=== PATIENT | male | born 1940 | race Caucasian/White ===

== ENCOUNTER 2016-07-11 01:59 | Observation (INO) | END 2016-07-11 16:04 | DX: R07.9 Chest pain, unspecified (principal); I69.354 Hemiplegia and hemiparesis following cerebral infarction affecting left non-dominant side; Z85.46 Personal history of malignant neoplasm of prostate; I10 Essential (primary) hypertension; K21.9 Gastro-esophageal reflux disease without esophagitis | CPT/HCPCS: 36415; 71010; 80048; 82550; 82553; 83735; 84484; 85025; 85610; 85730; 93005; 93306; 99285; G0378; J7040 ==

== ENCOUNTER 2016-07-20 16:18 | Inpatient (IN) | payer BC ==
[~2016-07-20] VITALS: Ht 167.6 cm; Wt 66.8 kg
[~2016-07-20 16:18] MED LIST: ACET-2047 GTB; AMIN887L6 GTB; ASCO500S2 PO; DICL100G37 TOP; DOCU-144 GTB; FLUC200T52 G-TUBE; HYDR-3671 GTB; KEP100S GTB; LACT1CAP56 GTB; LEVA1.25 INHALATION; MAGN400O4 PO; OMEP40CA6 GTB
[2016-07-20 16:43] VITALS: TEMP 99.4
[2016-07-20 17:05] LABS: ADD SCAN DIFF NO
[2016-07-20 17:14] LABS: BASOPHILS % 0.2 % (0.0-2.0); EOSINOPHILS # 0.2 10^3/ul (0.0-0.5); EOSINOPHILS % 2.7 % (0.0-7.0); HEMATOCRIT 36.6 % (42.0-52.0); HEMOGLOBIN 12.3 g/dl (14.0-18.0); LYMPHOCYTES # 0.9 10^3/ul (0.8-2.9); LYMPHOCYTES % 16.7 % (15.0-51.0); MEAN CORPUSCULAR HEMOGLOBIN 31.7 pg (29.0-33.0); MEAN CORPUSCULAR HGB CONC 33.6 g/dl (32.0-37.0); MEAN CORPUSCULAR VOLUME 94.3 fl (82.0-101.0); MEAN PLATELET VOLUME 11.3 fl (7.4-10.4); MONOCYTE # 0.4 10^3/ul (0.3-0.9); MONOCYTES % 7.6 % (0.0-11.0); NEUTROPHILS % 72.6 % (39.0-77.0); PLATELET COUNT 139 10^3/UL (140-415); RED BLOOD COUNT 3.88 10^6/ul (4.70-6.10); RED CELL DISTRIBUTION WIDTH 11.8 % (11.5-14.5); WHITE BLOOD COUNT 5.5 10^3/ul (4.8-10.8)
[2016-07-20] MEDS ORDERED: METR500T PO (17:15)
[2016-07-20] MEDS ORDERED: LEVO500T72 PO (17:16)
[2016-07-20] MEDS ORDERED: SENN-53 PO (17:17)
[2016-07-20 17:18] LABS: CHLORIDE 106 mmol/L (97-110); INR 1.01; PROTIME 13.3 Sec (12.2-14.2)
--- NOTE | 2016-07-20 17:18 | RADRPT ---
PROCEDURE: XR Chest. CLINICAL INDICATION: Shortness of breath. Altered mental status. TECHNIQUE: Single frontal view. COMPARISON: 07/11/2016. FINDINGS: The lungs are clear. The heart size is normal. There is no pleural effusion. There is no pneumothorax. IMPRESSION: 1. Normal chest radiograph. 2. No change from 07/11/2016. RPTAT: QQ .Alejandro Deleon MD, MD Date Time Electronically viewed and signed by .Alejandro Deleon MD, MD on 07/20/2016 17:18 .R/
[2016-07-20 17:19] LABS: PARTIAL THROMBOPLASTIN TIME 33.3 Sec (25.0-35.0); POTASSIUM 4.1 mmol/L (3.5-5.1); SODIUM 144 mmol/L (135-144)
[2016-07-20 17:21] LABS: CREATININE 0.86 mg/dl (0.61-1.24)
[2016-07-20 17:22] LABS: ALANINE AMINOTRANSFERASE 39 IU/L (13-69); ALBUMIN/GLOBULIN RATIO 0.96; ALKALINE PHOSPHATASE 80 IU/L (42-121); ANION GAP 13 (8-16); ASPARTATE AMINO TRANSFERASE 24 IU/L (15-46); BILIRUBIN,INDIRECT 0.5 mg/dl (0-1.1); BILIRUBIN,TOTAL 0.5 mg/dl (0.2-1.3); BLOOD UREA NITROGEN 25 mg/dl (7-20); CALCIUM 9.5 mg/dl (8.4-10.2); CARBON DIOXIDE 29 mmol/L (21-31); GLUCOSE 105 mg/dl (70-220); TOTAL PROTEIN 6.1 g/dl (6.1-8.1)
--- NOTE | 2016-07-20 17:23 | RADRPT ---
PROCEDURE: CT brain without contrast CLINICAL INDICATION: Altered mental status, history of stroke TECHNIQUE: CT of the brain without contrast performed on a multidetector CT scanner, with multiplan ar reformats. One or more of the following dose reduction techniques were used: Automated exposure control, adjustment in mA and / or kV according to patient size, use of iterative reconstructive leanne hnique. CTDIvol = 14 mGy; DLP = 634 mGy-cm. COMPARISON: None available FINDINGS: There are multifocal hyperdense intraparenchymal hemorrhages in the right frontal and parietal lobes with dominant hematoma in the frontoparietal junction measuring approximately 2.8 x 4 x 5 cm. Ther e is moderate to severe surrounding edema with areas of loss of austin-white differentiation. There i s mass effect with partial effacement of the lateral and third ventricles, leftward subfalcine herni ation with shift of the midline structures measuring up to approximately 1.5 cm. There is a small a mount of hemorrhage seen in the left lateral ventricle at the atrium. No hydrocephalus is identifie d. No extra-axial fluid collection is seen. Atherosclerotic calcifications of the intracranial internal carotid arteries are noted. Osseous structures are unremarkable. Left mastoid air cells are partially opacified. IMPRESSION: 1. Multifocal right frontoparietal intraparenchymal hemorrhages, with dominant hematoma measuring a pproximately 2.8 x 4 x 5 cm, with moderate to severe surrounding edema along with areas of loss of g ray-white differentiation possibly reflecting an underlying recent ischemic infarct. 2. Leftward subfalcine herniation, approximately 1.5 cm leftward midline shift. 3. Small amount of hemorrhage in the left lateral ventricle. Critical results called to Dr. Garcia at 05:19 p.m., 07/20/2016. RPTAT: EE .Dann Mix MD, Date Time Electronically viewed and signed by .Dann Mix MD, MD on 07/20/2016 17:23 .O/
--- NOTE | 2016-07-20 17:25 | ERA ---
ER Documentation Chief Complaint Date/Time DATE: 07/20/16 TIME: 17:19 Chief Complaint ALOC HPI 76-year-old male, history of hypertension, thrombocytopenia and hemorrhagic CVA with left hemiparesis brought to the ED from [facility] for evaluation of altered mental status. Patient had a hemorrhagic CVA several months ago with prolonged hospital admission at [facility] was discharged to group home facility and then had a rebleed last week. He was also admitted 07/11/2016 to [facility] for chest pain and ACS was ruled out. Today after rehab had a episode of unresponsiveness with altered mental status but now seems to be back to baseline. No headache or new focal weakness or numbness. Denies chest pain or palpitations. No shortness of breath or cough. No abdominal pain, nausea vomiting. No fevers or chills. ROS All systems reviewed and are negative except as per history of present illness. Medications Home Meds Active Scripts Omeprazole* (Omeprazole*) 40 Mg Capsule., 40 MG GTB BID, #30 CAP Prov:RUBY SCOTT F 07/11/16 Reported Medications Sennosides* (Senna Lax*) 8.6 Mg Tablet, 1 TAB PO Q12H Y for CONSTIPATION, TAB 07/20/16 Levofloxacin* (Levaquin*) 500 Mg Tablet, 500 MG PO DAILY, TAB STARTED TX ON 06-19-16 07/20/16 Metronidazole* (Flagyl*) 500 Mg Tablet, 500 MG PO TID, TAB STARTED ON 06-20-16 07/20/16 Levalbuterol Hcl* (Levalbuterol Hcl*) 1.25 Mg/0.5 Ml Vial.neb, 1.25 MG INHALATION BID, VIAL 07/11/16 Diclofenac Sodium* (Voltaren* Gel) 1% -100 Gm Gel, 4 GM TOP QID, #1 TUB 07/11/16 Acetaminophen* (Acetaminophen*) 650 Mg Tablet, 650 MG GTB Q4 Y for PAIN, #30 TAB 07/11/16 Lactobacillus Combo No.11 (Probiotic) 1 Each Cap.sprink, 1 CAP GTB DAILY, CAP 07/11/16 Levetiracetam* (Keppra* (Ped)) 100 Mg/Ml Liq, 750 MG GTB BID for 30 Days, BOTTLE 07/11/16 Discontinued Reported Medications Amino Acids/Protein Hydrolys (PRO-STAT AWC LIQUID) 887 Ml Liquid, 30 ML GTB BID 07/11/16 Magnesium Hydroxide* (Milk Of Magnesia*) 400 Mg/5 Ml Oral.susp, 30 ML PO every second day Y for CONSTIPATION, ML 07/11/16 Hydralazine Hcl* (Hydralazine Hcl*) 25 Mg Tab, 25 MG GTB Q6, #120 TAB 07/11/16 Docusate Sodium* (Colace*) 100 Mg Capsule, 100 MG GTB DAILY, #30 CAP 07/11/16 Fluconazole* (Fluconazole*) 200 Mg Tablet, 200 MG G-TUBE DAILY for 1 Day, TAB 07/11/16 Ascorbic Acid* (Ascorbic Acid*) 500 Mg/5 Ml Syrup, 500 MG PO DAILY, #150 ML 07/11/16 Allergies Allergies: Coded Allergies: No Known Allergy (Unverified , 07/11/16) PMhx/Soc Reviewed in chart. As per HPI. History of Surgery: Yes Anesthesia Reaction: Yes (G-tube) Hx Neurological Disorder: Yes Hx Respiratory Disorders: No Hx Cardiac Disorders: Yes (Hypertension) Hx Psychiatric Problems: No Hx Miscellaneous Medical Probl: Yes (Multiple decubiti) Hx Alcohol Use: No Hx Substance Use: No Hx Tobacco Use: No Smoking Status: Never smoker FmHx Reviewed in chart. Physical Exam Vitals Vital Signs Date Time Temp Pulse Resp B/P Pulse Ox O2 Delivery O2 Flow Rate FiO2 07/20/16 16:44 99.4 69 16 102/73 98 07/20/16 16:43 99.4 69 16 102/73 98 Room Air Physical Exam Const: Alert, chronically ill-appearing Head: Atraumatic Eyes: Right pupil fixed and dilated. Normal conjunctiva. ENT: Normal External Ears, Nose and Mouth. Neck: Nontender. No JVD. Resp: Breath sounds are equal and clear to auscultation bilaterally Cardio: Regular rate and rhythm, no murmurs Abd: Soft, non tender, non distended. Normal bowel sounds. G-tube site clean without erythema, induration or drainage Skin: No petechiae or rashes Back: No midline or flank tenderness Ext: No cyanosis, or edema Neur: Awake and alert. Dense left hemiparesis. Psych: Normal Mood and Affect Result Diagram: 07/20/16 1650 07/20/16 1650 Results 24 hrs Laboratory Tests Test 07/20/16 16:50 07/20/16 17:30 07/20/16 19:05 Activated Partial Thromboplast Time 33.3Sec Alanine Aminotransferase (ALT/SGPT) 39IU/L Albumin 3.0g/dl Albumin/Globulin Ratio 0.96 Alkaline Phosphatase 80IU/L Anion Gap 13 Aspartate Amino Transf (AST/SGOT) 24IU/L Basophils # 0.010^3/ul Basophils % 0.2% Blood Urea Nitrogen 25mg/dl Calcium Level 9.5mg/dl Carbon Dioxide Level 29mmol/L Chloride Level 106mmol/L Creatinine 0.86mg/dl Direct Bilirubin 0.00mg/dl Eosinophils # 0.210^3/ul Eosinophils % 2.7% Globulin 3.10g/dl Glucose Level 105mg/dl Hematocrit 36.6% Hemoglobin 12.3g/dl INR International Normalized Ratio 1.01 Indirect Bilirubin 0.5mg/dl Lymphocytes # 0.910^3/ul Lymphocytes % 16.7% Mean Corpuscular Hemoglobin 31.7pg Mean Corpuscular Hemoglobin Concent 33.6g/dl Mean Corpuscular Volume 94.3fl Mean Platelet Volume 11.3fl Monocytes # 0.410^3/ul Monocytes % 7.6% Neutrophils # 4.010^3/ul Neutrophils % 72.6% Nucleated Red Blood Cells # 0.010^3/ul Nucleated Red Blood Cells % 0.0/100WBC Platelet Count 69305^3/UL Potassium Level 4.1mmol/L Prothrombin Time 13.3Sec Prothrombin Time Ratio 1.0 Red Blood Count 3.8810^6/ul Red Cell Distribution Width 11.8% Sodium Level 144mmol/L Total Bilirubin 0.5mg/dl Total Protein 6.1g/dl Troponin I < 0.012ng/ml White Blood Count 5.510^3/ul Urine Amorphous Urates MODERATE Urine Bacteria FEW Urine Bilirubin NEGATIVE Urine Clarity SLIGHTLY CLOUDY Urine Color LT. YELLOW Urine Glucose NEGATIVE% Urine Hemoglobin TRACE Urine Ketones NEGATIVE Urine Leukocyte Esterase NEGATIVE Urine Microscopic RBC 0-2/HPF Urine Microscopic WBC 0-2/HPF Urine Nitrite NEGATIVE Urine Specific [place] 1.010 Urine Total Protein NEGATIVE Urine Urobilinogen 0.2 E.U./dL Urine pH 7.0 Platelet Func Collagen/Epinephrine 84Secs. Platelet Function Collagen/ADP Secs. Current Medications Medications (Trade) Dose Ordered Sig/Jay Route PRN Reason Start Time Stop Time Status Last Admin Dose Admin Mannitol (Mannitol 25%) 25 gm ONCE ONCE IV* 07/20/16 18:30 07/20/16 18:31 DC RHYTHM STRIP INTERPRETATION: Time: 17: 00. Sinus rhythm. Ventricular rate 70. No ectopy. Indication: Altered mental status. EKG: Time: 17:16. Sinus rhythm. Ventricular rate 65, normal UT and QRS intervals. No acute ST segment elevation or depression. No axis deviation or ectopy. EP Impression: Normal EKG IMAGING: PROCEDURE: CT brain without contrast CLINICAL INDICATION: Altered mental status, history of stroke TECHNIQUE: CT of the brain without contrast performed on a multidetector CT scanner, with multiplanar reformats. One or more of the following dose reduction techniques were used: Automated exposure control, adjustment in mA and / or kV according to patient size, use of iterative reconstructive technique. CTDIvol = 14 mGy; DLP = 634 mGy-cm. COMPARISON: None available FINDINGS: There are multifocal hyperdense intraparenchymal hemorrhages in the right frontal and parietal lobes with dominant hematoma in the frontoparietal junction measuring approximately 2.8 x 4 x 5 cm. There is moderate to severe surrounding edema with areas of loss of austin-white differentiation. There is mass effect with partial effacement of the lateral and third ventricles, leftward subfalcine herniation with shift of the midline structures measuring up to approximately 1.5 cm. There is a small amount of hemorrhage seen in the left lateral ventricle at the atrium. No hydrocephalus is identified. No extra-axial fluid collection is seen. Atherosclerotic calcifications of the intracranial internal carotid arteries are noted. Osseous structures are unremarkable. Left mastoid air cells are partially opacified. IMPRESSION: 1. Multifocal right frontoparietal intraparenchymal hemorrhages, with dominant hematoma measuring approximately 2.8 x 4 x 5 cm, with moderate to severe surrounding edema along with areas of loss of austin-white differentiation possibly reflecting an underlying recent ischemic infarct. 2. Leftward subfalcine herniation, approximately 1.5 cm leftward midline shift. 3. Small amount of hemorrhage in the left lateral ventricle. Critical results called to Dr. Wu at 05:19 p.m., 07/20/2016. RPTAT: EE .Dann Mix MD, Date Time Electronically viewed and signed by .Dann Mix MD, MD on 07/20/2016 17:23 .O/ PROCEDURE: XR Chest. CLINICAL INDICATION: Shortness of breath. Altered mental status. TECHNIQUE: Single frontal view. COMPARISON: 07/11/2016. FINDINGS: The lungs are clear. The heart size is normal. There is no pleural effusion. There is no pneumothorax. IMPRESSION: 1. Normal chest radiograph. 2. No change from 07/11/2016. RPTAT: QQ .Alejandro Deleon MD, MD Date Time Electronically viewed and signed by .Alejandro Deleon MD, MD on 07/20/2016 17:18 .R/ Procedures/MDM DOCUMENTS REVIEWED: ED nurse, prior ED, group home facility records, hospital records from [facility]. REEXAMINATION/REEVALUATION: Time: 18:10. Doing well. At baseline. MEDICAL DECISION MAKIN-year-old male, history of hypertension, thrombocytopenia and hemorrhagic CVA with left hemiparesis brought to the ED from [place] for evaluation of altered mental status. He is currently back to baseline. CT reveals mild worsening shift of approximately 1 mm. Neurosurgery consult obtained and there is no indication for operative therapy. Patient be admitted to the intensive care unit for further evaluation and management. Counseled patient and family regarding diagnosis, diagnostic results and plan for admission. CALLS/CONSULTS: Time 18:20, Dr. Munguia, Recommends Medical Management. CALLS/CONSULTS: Time 18:30, Dr. Nyasia Hernández. PATIENT CARE TRANSITIONED: Time: 19:30, Dr. Murrell. DISPOSITION: ICU Departure Diagnosis: Primary Impression: Intraparenchymal hemorrhage of brain Additional Impressions: Hypertension Qualified Code: I10 - Essential hypertension Thrombocytopenia Condition: Critical CHIQUITA WU MD Jul 20, 2016 17:25
[2016-07-20 17:39] LABS: ADD UMIC YES; URINE BILIRUBIN (Dip) NEGATIVE (NEGATIVE); URINE BLOOD (Dip) TRACE (NEGATIVE); URINE COLOR LT. YELLOW (YELLOW); URINE GLUCOSE (Dip) NEGATIVE (NEGATIVE); URINE KETONES (Dip) NEGATIVE (NEGATIVE); URINE LEUKOCYTE ESTERASE (Dip) NEGATIVE (NEGATIVE); URINE NITRITE (Dip) NEGATIVE (NEGATIVE); URINE TOTAL PROTEIN (Dip) NEGATIVE (NEGATIVE); URINE UROBILINOGEN (Dip) 0.2 E.U./dL (0.1-1.0)
[2016-07-20 17:41] LABS: TROPONIN-I < 0.012 ng/ml (0.00-0.12)
[2016-07-20 18:04] LABS: BACTERIA,URINE FEW; URINE RBCS 0-2 /HPF (0)
[2016-07-20] MEDS ORDERED: MANNITOL 25% 50 ML INJ IV* ONE (18:30)
[2016-07-20] MEDS ORDERED: MAGNESIUM HYDROXIDE 30ML CUP PO PRN (21:30)
[2016-07-20] MEDS ORDERED: NACL 0.9% 3 ML SYG IV SCH (21:30)
[2016-07-20] MEDS ORDERED: ONDANSETRON 4 MG INJ IV PRN (21:30)
[2016-07-20] MEDS ORDERED: DOCUSATE SODIUM 100 MG CAP PO PRN (21:30)
[2016-07-20] MEDS ORDERED: HYDROCODONE/APAP (5/325) TAB PO PRN ×2 (21:30)
[2016-07-20] MEDS ORDERED: ACETAMINOPHEN 325 MG TAB PO PRN (21:30)
[2016-07-20] MEDS ORDERED: DOCUSATE SODIUM 10 MG/ML (10ML CUP) GTB PRN (22:00)
[2016-07-20] MEDS ORDERED: MAGNESIUM HYDROXIDE 30ML CUP PEG PRN (22:00)
[2016-07-20 22:10] VITALS: Ht 167.6 cm; Wt 66.8 kg
[2016-07-20 22:30] VITALS: BP 121/71; PULSE 64; RESP 19
[2016-07-20] MEDS ORDERED: PANTOPRAZOLE (EC) 40 MG TAB PO ONE (22:30)
[2016-07-20] MEDS ORDERED: ACETAMINOPHEN 650MG/20.3ML CUP PEG PRN (22:30)
[2016-07-20] MEDS ORDERED: PANTOPRAZOLE 40 MG INJ IV ONE (22:30)
--- NOTE | 2016-07-20 22:31 | CONS ---
DATE OF ADMISSION: 07/20/2016 DATE OF CONSULTATION: 07/20/2016 REQUESTING PHYSICIAN: Dr. Chris Garcia INDICATION FOR CONSULTATION: Intracranial hemorrhage. HISTORY OF PRESENT ILLNESS: The patient is a 76-year-old right-handed male with a history of multiple intracranial hemorrhages and a history of hypertension and mild thrombocytopenia who was brought in from a intermediate facility after he reportedly had some alteration in mental status. The patient was released from [facility] after being admitted on the for recurrent right intraparenchymal hemorrhage. Six weeks prior, the patient had had intracranial hemorrhage in the same area. History is obtained from the patient's as well as from the patient to a limited degree. According to the patient's , she had found him less responsive after rehab today and was concerned, so [facility] was [facility]. The patient, however, upon coming to the ER reportedly is back to his neurological baseline since his strokes. The patient denies any headaches, nausea, vomiting or new weakness or sensory changes. He denies any chest pain or abdominal pain or palpitations. He denies any fevers or chills, abdominal pain or shortness of breath. A CT scan of the brain was performed which shows a large hemorrhagic stroke with surrounding edema. There is some leftward subfalcine herniation and midline shift of 3 mm. I reviewed the radiologist's result and discussed this study with the radiologist, who had compared this study to the prior study performed at [facility]. He felt there might be a slight, perhaps 1 mm increased midline shift but otherwise stable study. The radiologist who interpreted the study, Dr. Mix's impression was that: 1. There are multifocal right frontoparietal intraparenchymal hemorrhages with dominant hematoma measuring approximately 2.8 x 4 x 5 cm with moderate to severe surrounding edema along with loss of austin-white differentiation possibly reflecting an underlying recent ischemic infarct. 2. There is left subfalcine herniation, approximately 1.5 cm leftward midline shift and a small amount of hemorrhage in left lateral ventricle. As well, I see no evidence of hydrocephalus. REVIEW OF SYSTEMS: A 12-point review of systems was performed. Pertinent positives and negatives listed in the history of present illness and below. CONSTITUTIONAL: Denies any history of fevers or chills. HEMATOLOGIC: Denies any history of easy bruising or bleeding. MEDICATIONS: Reviewed in the chart include: 1. Omeprazole. 2. Sennosides. 3. Levofloxacin. 4. Metronidazole. 5. Voltaren cream. 6. Levalbuterol. 7. Acetaminophen. 8. Lactobacillus. 9. Keppra. ALLERGIES: THE PATIENT HAS NO KNOWN DRUG ALLERGIES. PAST MEDICAL HISTORY: The patient's past medical is history significant for hypertension as well as multiple strokes. According to the patient's , the patient had visual problems [facility], where he was found to have an occipital hemorrhage. The patient apparently had a full workup to evaluate for arteriovenous malformations and other vascular malformations including a formal angiogram as well as MRI. The patient was told that there was no evidence of any type of lesion to cause this bleed. It should be noted that subsequently the patient has had 2 other intraparenchymal hemorrhages in the past 2 years. PAST SURGICAL HISTORY: Includes a G-tube placement. SOCIAL HISTORY: The patient is nonsmoker, nondrinker, is . FAMILY HISTORY: Reviewed. No history of inherited bleeding disorders. PHYSICAL EXAMINATION: VITAL SIGNS: Temperature 99.4, pulse 69, respirations 16, blood pressure 102/73 , saturating 98% on room air. GENERAL: The patient is a thin, elderly man lying in the hospital bed in no acute distress. HEAD AND NECK: The patient atraumatic. NEUROLOGIC: The patient is awake, alert. He is oriented to self and place. He has soft and hesitant speech. The patient does follow most commands readily and appropriately. He appears to have grossly normal attention and concentration for examination, though he clearly has some slight cognitive slowing. Cranial nerves II through XII are serially tested. II: The patient has some diminished visual acuity bilaterally secondary to myopia but also has a history of cataract and damage to the right eye. III, IV and XI: Extraocular muscles intact. Left pupil equal, round, reactive to light. Right pupil irregular. V: Normal facial sensation bilaterally. VII: Face has slight left facial droop compared to right. VIII: Grossly normal auditory acuity to finger rub and normal voice. IX: Symmetrical palate raise. XI: 5/ 5 sternocleidomastoid shoulder shrug. XII: No tongue deviation when protruded. His motor exam is 5/5 in his right upper and lower extremities. His left upper and lower extremities are flaccid and hemiparetic, 0/5. Sensation is intact to light touch. Deep tendon reflexes were 1+ throughout, although the patient did have a left Babinski and left Nikki sign. He had no clonus. Gait not assessed secondary to condition. CARDIAC: Regular rate, rhythm. CHEST: Clear to auscultation. ABDOMEN: Nontender, nondistended, soft. He has G-tube site. EXTREMITIES: No clubbing, cyanosis or edema. LABORATORY DATA: The patient's white count 5.5, hemoglobin 12.3, platelets 139. Sodium 144, BUN and creatinine 25 and 0.86 with glucose of 105. REVIEW OF RADIOGRAPHIC RESULTS: I reviewed the patient's CT scan as discussed in the history of present illness as well as the radiologist's result. ASSESSMENT AND PLAN: A 76-year-old male status post right intraparenchymal hemorrhage with localized edema. I discussed the patient's signs, symptoms, clinical exam and radiographic findings in detail with the patient and his . I had an extended conversation with the patient's , well over 30 minutes as she had multiple questions regarding the patient's care. I explained that I had been consulted for evaluation of surgical intervention. I discussed the nature of the patient's hemorrhage. I also discussed the likely etiologies. I explained that the patient most likely had amyloid angiopathy given the multiple recurrent hemorrhages and the lobar location as well as the patient's reported previously negative angiogram. The patient has already been hospitalized twice at [facility] and evaluated for workup, and I do not believe further workup with, for example, CT angiogram is indicated. As well, per the patient's , the patient had a negative angiogram previously. 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 The patient does have some thrombocytopenia, but the platelet count appears to be close to if not greater than 100,000 and probably unlikely is source for the initial bleed. In either case, I explained that the patient currently neurologically appears fine, and given the location and size of the lesion as well as the patient's age, I would not recommend any type of surgical intervention should the patient neurologically deteriorate. I discussed the [facility] trial as well as the likely outcome for removal of intraparenchymal hemorrhages, and I explained that this would likely leave patient with significant neurologic deficits and not generally leave him with a quality of life that most people would find acceptable. The patient already has a significant neurologic deficit which is only recent. Also, patient likely has significant risk for recurrent bleeds in the future. I also discussed the decompressive hemicraniectomy and explained, again, that I would not recommend such a procedure on a patient of this age would should he deteriorate. Currently I would not recommend an operation as the patient appears to be neurologically stable, and should he deteriorate, given the likely outcome, I do not believe this would significantly leave the patient with an acceptable quality of life in the majority of cases. I explicitly stated that I would not recommend or perform such a procedure, and therefore if the patient or his felt that they would want consideration for such a procedure, they were welcome to be transferred to [place] or to find a neurosurgeon that might perform such a procedure should such a deterioration take place. The patient's , however, stated that she was not inclined to return to [place], although the patient had recently been admitted twice to the hospital. I explained that the patient appears neurologically stable, and it may be reasonable just to follow up CT scans and if the edema appears to be stable, then there likely would not be any medical intervention necessary. The patient had been given mannitol, and I discussed the potential benefit of this for the patient's swelling. I discussed the natural history of this swelling and of the edema and explained that it may generally maximize around 5 days. However, there could be other underlying reasons for the persistence of this edema. The patient is to be admitted to the hospital medical service, and I recommended conservative and medical treatment. I explicitly explained I deferred any such medical treatment to the medical service as the patient does not appear to have an acute bleed, and again as discussed, the recommended clinical treatment, I would not recommend providing any type of neurosurgical intervention given the patient's specific clinical scenario. The patient and his expressed understanding and agreement with the recommendations. Thank you for allowing me to participate in the care of this patient. EVALUATION AND MANAGEMENT NOTE: Greater than 60 minutes in hospital evaluation and medical management including counseling and coordination of care. Dictated By: EVETTE ANGULO MD, LG/RUDDY Conf#: [id number] DID#: [id number] SHEILA
[2016-07-20 22:43] VITALS: PULSE 65
[2016-07-20 23:00] VITALS: BP 130/78; PULSE 63; RESP 19
--- NOTE | 2016-07-20 23:34 | HP ---
DATE OF ADMISSION: 07/20/2016 CHIEF COMPLAINT: Altered mental status. HISTORY OF PRESENT ILLNESS: The patient is a 76-year-old male with a recent stroke who was hospitalized at [facility] from 07/16/2016 through 07/19/2016. The patient was subsequently discharged to [facility] for rehabilitation and but re-presented back to [facility] at approximately 2:00 p.m. today. Apparently, there was about a 20-minute episode where the patient was unresponsive, according to his girlfriend. EMS was summoned and, once the paramedics arrived, the patient was aroused and awakened by paramedics and went back to baseline level of neurological status. As the patient's girlfriend felt that this was a complete change from his mental status, although he did return back to his baseline state , she requested evaluation at [facility] for further evaluation. The patient's history dates back to 07/16/2016 where he was hospitalized for a second time at [facility]. 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 He had a second bleed in the same area on 07/16/2016. During his 4-day hospitalization at [place], he was monitored with serial CT scans, but no esurgical intervention was needed per Dr. Schuster (neurosurgeon) at [facility]. He was noted to have moderate to severe surrounding edema and mass effect with partial effacement of the lateral and third ventricles with a leftward shift of approximately 1.5 cm. This appears to be unchanged from the CT scan from [facility] done 1 day prior. The patient had no change in his neurologic examination. At baseline after his stroke, he has dense left hemiparesis. He had no other symptoms whatsoever. Dr. Garcia evaluated the patient in the emergency department and Dr. Munguia was called for a bedside consultation. Dr. Munguia recommended mannitol every 6 hours; however, the patient's girlfriend refused this treatment. The patient was placed in the intensive care unit for frequent neuro checks and for ongoing monitoring. ALLERGIES: NO KNOWN DRUG ALLERGIES. MEDICATIONS: 1. Omeprazole 40 mg twice daily. 2. Senna laxative 8.6 grams twice daily. 3. Levaquin 500 mg once daily. 4. Flagyl 500 mg 3 times a day. 5. Xopenex 1.25 mg inhaled twice daily. 6. Voltaren gel 4 grams topical 4 times a day. 7. Tylenol 650 mg q.4h. via the G-tube p.r.n. temperature greater than 101. 8. Lactobacillus combo #11 probiotic 1 capsule via the G-tube once daily. 9. Keppra 1 gram via G-tube twice daily. PAST MEDICAL HISTORY: The patient has history of prostatectomy for prostate cancer. He also has GERD. SOCIAL HISTORY: The patient lives with his girlfriend in [place] for the last 23 years. He has adult children as well. He denies alcohol and tobacco use recently. REVIEW OF SYSTEMS: Essentially negative except as stated in history of present illness. PHYSICAL EXAMINATION: VITAL SIGNS: His temperature is 99.4, blood pressure 133/82, pulse rate of 65, respiratory rate of 18, oxygen saturation 98% on room air. HEENT: Normocephalic, atraumatic. Extraocular movements were intact. His pupils were equal, round, react to light and accommodations. Oropharynx was clear. He had a mild left facial droop. NECK: No JVD was noted. No thyromegaly was noted. CARDIOVASCULAR: He had a regular rate and rhythm without appreciable murmurs, rubs, or gallops. LUNGS: Clear to auscultation bilaterally without rales, rhonchi, or crackles. ABDOMEN: Soft, nontender, nondistended. Normoactive bowel sounds present in all 4 quadrants. He has a G-tube placed and the area, is clean, dry, and intact. EXTREMITIES: No clubbing, cyanosis, or edema was noted. LABORATORIES AND TESTS: White count 5.5, hemoglobin 12.3, hematocrit of 36.6, platelet count of 139,000. Sodium 144, potassium 4.1, chloride 106, bicarbonate 29, BUN 25, creatinine 0.86, glucose 105, calcium 9.5. Total bilirubin 0.5, indirect 0.5, AST 24, ALT 39, alkaline phosphatase 80. Troponin less than 0.012. Total protein 6.1. Albumin 3.0, globulin 3.1. PT 13.3, INR of 1.01, PTT 33.3. Urinalysis was essentially negative for infection. He had moderate amorphous ____ and trace hemoglobin and few bacteria. The patient had a CT scan of the brain in the ER, which revealed multifocal hyperdense intraparenchymal hemorrhages in the right frontal and parietal lobes with dominant hematoma in the frontoparietal junction measuring approximately 2.8 x 4 x 5 cm. There is moderate to severe surrounding edema with areas of loss of the austin-white differentiation. There is mass effect with partial effacement of the lateral and third ventricles, leftward subfalcine herniation with shift of midline structures pressure up to approximately 1.5 cm, small amount of hemorrhage seen in the left lateral ventricle at the atrium, no hydrocephalus was identified, and atherosclerotic calcification of the intracranial and internal carotid arteries were noted as well. IMPRESSION: 1. The patient is a pleasant 76-year-old gentleman who presented to [facility] after what was noted to be in acute mental status change. It appears that the patient was unresponsive, according to his girlfriend, and later when EMS arrived, he was awoken and was completely back to baseline. He did, however, come to [facility] ER and, although his neurological status appears to be at baseline, he was placed in the intensive care unit for frequent neurologic checks. He will receive serial CT scans to monitor his progress. The patient's girlfriend refused mannitol, as suggested by Dr. Munguia. He will be continued on his outpatient medications including Keppra for seizure prophylaxis, and depending on his clinical course, further treatments and evaluations to be made. 2. Gastroesophageal reflux disease, stable. Continue Protonix. 3. Bronchitis from his previous admission. We will continue Levaquin and Flagyl, as the patient may have had bronchitis and/or aspiration pneumonia. 4. Nutrition. The patient has a G-tube as he failed his swallow evaluation. He will be continued on Isosource HN with the goal rate of 60 mL. He will also get 200 mL of free water flushes every 6 hours. Dictated By: SARAH CLAUDIO/RUDDY Conf#: [id number] DID#: [id number] MTDD
[2016-07-20] MEDS: metroNIDAZOLE 500 MG TAB GTB SCH (23:45)
[2016-07-20] MEDS: LEVOFLOXACIN 500 MG TAB GTB SCH (23:45)
[2016-07-20] MEDS: LEVETIRACETAM 500 MG TAB PEG SCH (23:45)
[2016-07-21] VITALS (26 sets, daily range): BP systolic 79–137; BP diastolic 68–89; PULSE 64–113; RESP 12–32
[2016-07-21] MEDS ORDERED: HYDROCODONE/APAP (5/325) TAB PEG PRN (03:30)
[2016-07-21] MEDS ORDERED: ACETAMINOPHEN 325 MG TAB PEG PRN (03:30)
[2016-07-21 04:54] LABS: ADD SCAN DIFF NO
[2016-07-21 05:08] LABS: BASOPHILS % 0.4 % (0.0-2.0); EOSINOPHILS # 0.2 10^3/ul (0.0-0.5); EOSINOPHILS % 3.8 % (0.0-7.0); HEMATOCRIT 38.9 % (42.0-52.0); HEMOGLOBIN 12.9 g/dl (14.0-18.0); LYMPHOCYTES # 0.7 10^3/ul (0.8-2.9); LYMPHOCYTES % 14.8 % (15.0-51.0); MEAN CORPUSCULAR HEMOGLOBIN 31.6 pg (29.0-33.0); MEAN CORPUSCULAR HGB CONC 33.2 g/dl (32.0-37.0); MEAN CORPUSCULAR VOLUME 95.3 fl (82.0-101.0); MEAN PLATELET VOLUME 12.3 fl (7.4-10.4); MONOCYTE # 0.3 10^3/ul (0.3-0.9); MONOCYTES % 6.8 % (0.0-11.0); NEUTROPHIL # 3.7 10^3/ul (1.6-7.5); NEUTROPHILS % 73.8 % (39.0-77.0); PLATELET COUNT 132 10^3/UL (140-415); RED BLOOD COUNT 4.08 10^6/ul (4.70-6.10); RED CELL DISTRIBUTION WIDTH 11.9 % (11.5-14.5)
[2016-07-21 05:20] LABS: ALBUMIN 3.1 g/dl (3.3-4.9); POTASSIUM 4.2 mmol/L (3.5-5.1)
[2016-07-21 05:22] LABS: BILIRUBIN,INDIRECT 0.5 mg/dl (0-1.1); BILIRUBIN,TOTAL 0.5 mg/dl (0.2-1.3); CREATININE 0.87 mg/dl (0.61-1.24)
[2016-07-21 05:23] LABS: ALBUMIN/GLOBULIN RATIO 1.06; CALCIUM 9.6 mg/dl (8.4-10.2)
[2016-07-21] MEDS: metroNIDAZOLE 500 MG TAB GTB SCH ×3 (05:41→22:05)
[2016-07-21] MEDS: PANTOPRAZOLE 40 MG INJ IV SCH (05:41)
[2016-07-21] MEDS: LEVOFLOXACIN 500 MG TAB GTB SCH (05:41)
[2016-07-21] MEDS: LEVALBUTEROL (NEB) 1.25 MG/0.5 ML AMP HHN SCH ×2 (08:19→20:48)
[2016-07-21] MEDS: LEVETIRACETAM 500 MG TAB PEG SCH ×2 (09:05→20:37)
[2016-07-21] MEDS: LACTOBACILLUS CHEW TAB GTB SCH (09:05)
--- NOTE | 2016-07-21 11:03 | PN ---
Date/Time of Note Date/Time of Note DATE: 07/21/16 TIME: 10:37 Assessment/Plan VTE Prophylaxis VTE Prophylaxis Intervention: SCD's Lines/Catheters IV [facility]ter Type (from [facility]): Peripheral IV Urinary Cath still in place: Yes Reason Cath still needed: other (indicate) (ICU, monitor UOP ) Assessment/Plan Assessment/Plan 76-year-old gentleman: 1. 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 His neurological status appears to be back to baseline, Appreciate Neurosurgery evaluation and recommendations Conservative Management for now with follow up CT head Apparently , the patient's girlfriend refused mannitol, as suggested by Dr. Munguia. Continue outpatient medications including Keppra for seizure prophylaxis, and depending on his clinical course, further treatments and evaluations to be made. 2. Gastroesophageal reflux disease, stable. Continue Protonix. 3. Bronchitis from his previous admission. We will continue Levaquin and Flagyl, as the patient may have had bronchitis and/or aspiration pneumonia. 4. Nutrition. The patient has a G-tube as he failed his swallow evaluation. Continue, tube feeding, on Isosource HN with the goal rate of 60 mL and 200 mL of free water flushes every 6 hours. Prophylaxis: SCDs for dvt ppx and PPI for GI ppx Disposition: Further treatment and recommendations to be made based on the patient's progress. Neurosurgery following, will clarify frequency of serial CT head Subjective 24 Hr Interval Summary Free Text/Dictation Patient remains stable No new complaints with ongoing unchanged left hemiparesis BP stable and appreciate Neurosurgery evaluation and recommendations, need to clarify when need next CT head done Exam/Review of Systems Vital Signs Vitals Vital Signs Date Time Temp Pulse Resp B/P Pulse Ox O2 Delivery O2 Flow Rate FiO2 07/21/16 09:00 79 18 111/74 96 Room Air 07/21/16 08:19 21 07/21/16 07:40 98.4 Intake and Output 07/20/16 07/20/16 07/21/16 14:59 22:59 06:59 Intake Total 330 ml Output Total 890 ml Balance -560 ml Exam Constitutional: alert, frail, oriented, other (unchanged neurological deficits ) Respiratory: clear to auscultation, normal air movement Cardiovascular: nl pulses, regular rate and rhythm Gastrointestinal: non-tender, soft Musculoskeletal: nl extremities to inspection Extremities: normal pulses, other (no edema, clubbing or cyanosis ) 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, nl mental status (at [facility] ), other ( chronic dysarthria, left hemiparesis at [facility] ) Results Result Diagram: 07/21/16 0446 07/21/16 0446 Results 24 hrs Laboratory Tests Test 07/20/16 16:50 07/20/16 17:30 07/20/16 19:05 07/21/16 04:46 Activated Partial Thromboplast Time 33.3 Alanine Aminotransferase (ALT/SGPT) 39 35 Albumin 3.0 L 3.1 L Albumin/Globulin Ratio 0.96 1.06 Alkaline Phosphatase 80 75 Anion Gap 13 13 Aspartate Amino Transf (AST/SGOT) 24 25 Basophils # 0.0 0.0 Basophils % 0.2 0.4 Blood Urea Nitrogen 25 H 28 H Calcium Level 9.5 9.6 Carbon Dioxide Level 29 28 Chloride Level 106 109 Creatinine 0.86 0.87 Direct Bilirubin 0.00 0.00 Eosinophils # 0.2 0.2 Eosinophils % 2.7 3.8 Globulin 3.10 2.90 Glucose Level 105 123 Hematocrit 36.6 L 38.9 L Hemoglobin 12.3 L 12.9 L INR International Normalized Ratio 1.01 Indirect Bilirubin 0.5 0.5 Lymphocytes # 0.9 0.7 L Lymphocytes % 16.7 14.8 L Mean Corpuscular Hemoglobin 31.7 31.6 Mean Corpuscular Hemoglobin Concent 33.6 33.2 Mean Corpuscular Volume 94.3 95.3 Mean Platelet Volume 11.3 H 12.3 H Monocytes # 0.4 0.3 Monocytes % 7.6 6.8 Neutrophils # 4.0 3.7 Neutrophils % 72.6 73.8 Nucleated Red Blood Cells # 0.0 0.0 Nucleated Red Blood Cells % 0.0 0.0 Platelet Count 139 L 132 L Potassium Level 4.1 4.2 Prothrombin Time 13.3 Prothrombin Time Ratio 1.0 Red Blood Count 3.88 L 4.08 L Red Cell Distribution Width 11.8 11.9 Sodium Level 144 146 H Total Bilirubin 0.5 0.5 Total Protein 6.1 6.0 L Troponin I < 0.012 White Blood Count 5.5 5.0 Urine Amorphous Urates MODERATE Urine Bacteria FEW Urine Bilirubin NEGATIVE Urine Clarity SLIGHTLY CLOUDY Urine Color LT. YELLOW Urine Glucose NEGATIVE Urine Hemoglobin TRACE Urine Ketones NEGATIVE Urine Leukocyte Esterase NEGATIVE Urine Microscopic RBC 0-2 Urine Microscopic WBC 0-2 Urine Nitrite NEGATIVE Urine Specific [place] 1.010 Urine Total Protein NEGATIVE Urine Urobilinogen 0.2 E.U./dL Urine pH 7.0 Platelet Func Collagen/Epinephrine 84 Platelet Function Collagen/ADP Medications Medications Current Medications Ondansetron HCl (Zofran Inj) 4 mg Q6H PRN IV NAUSEA AND/OR VOMITING; Start 07/20 at 21:30 Acetaminophen/ Hydrocodone Bitart ([place] (5/325)) 2 tab Q6H PRN PO PAIN LEVEL 7 -10; Start 07/20/16 at 21:30 Acetaminophen/ Hydrocodone Bitart ([place] (5/325)) 1 tab Q6H PRN PEG PAIN LEVEL 4-6; Start 07/21/16 at 03:30 Magnesium Hydroxide (Milk Of Mag) 30 ml DAILY PRN PEG CONSTIPATION; Start at 22:00 Docusate Sodium (Colace Liquid Cup) 100 mg BID PRN GTB CONSTIPATION; Start 07/20 at 22:00 Acetaminophen (Tylenol Liquid) 650 mg Q6H PRN PEG PAIN LEVEL 1-3 OR FEVER; Start 07/20/16 at 22:30 Levetiracetam (Keppra) 1,000 mg BID PEG Last administered on 07/21/16 09:05; Admin Dose 1,000 MG; Start 07/20/16 at 22:30 Levofloxacin (Levaquin) 500 mg DAILY@06 GTB Last administered on 07/21/16 05:41 ; Admin Dose 500 MG; Start 07/20/16 at 22:30 Metronidazole (Flagyl) 500 mg Q8 GTB Last administered on 07/21/16 05:41; Admin Dose 500 MG; Start 07/20/16 at 22:30 Senna/Docusate Sodium (Senokot-S) 1 tab HS PO ; Start 07/21/16 at 21:00 Lactobacillus Acidoph/Bulgaricus (Floranex) 1 tab DAILY GTB Last administered on 07/21/16 09:05; Admin Dose 1 TAB; Start 07/21/16 at 09:00 Pantoprazole (Protonix Iv) 40 mg DAILY@06 IV Last administered on 07/21/16 05: 41; Admin Dose 40 MG; Start 07/21/16 at 06:00 RUBY SCOTT Jul 21, 2016 10:47
[2016-07-21] MEDS: CIPROFLOXACIN 0.3% 2.5 ML OPH RIGHT EYE SCH ×2 (17:22→20:38)
[2016-07-21] MEDS ORDERED: SENNA/DOCUSATE NA (8.6MG/50MG) TAB PO SCH (21:00)
--- NOTE | 2016-07-21 22:33 | PN ---
Date/Time of Note Date/Time of Note DATE: 07/21/16 TIME: 22:31 Assessment/Plan Lines/Catheters IV Catheter Type (from Nrs): Peripheral IV Kruse in Place (from Nrsg): Yes Subjective 24 Hr Interval Summary Patient doing well. Denies headache, nausea, vomiting. 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 follows comamnds readily and appropriately. Slurred but fluent speech.) Results Result Diagram: 07/21/16 0446 07/21/16 0446 EVETTE ANGULO MD Jul 21, 2016 22:33
[2016-07-22] VITALS (23 sets, daily range): BP systolic 95–134; BP diastolic 59–115; PULSE 69–95; RESP 12–28
[2016-07-22] MEDS: CIPROFLOXACIN 0.3% 2.5 ML OPH RIGHT EYE SCH ×4 (01:26→13:51)
[2016-07-22 04:53] LABS: ADD SCAN DIFF NO
[2016-07-22 05:07] LABS: BASOPHILS % 0.3 % (0.0-2.0); EOSINOPHILS # 0.2 10^3/ul (0.0-0.5); EOSINOPHILS % 2.6 % (0.0-7.0); HEMATOCRIT 38.9 % (42.0-52.0); HEMOGLOBIN 12.9 g/dl (14.0-18.0); LYMPHOCYTES # 0.9 10^3/ul (0.8-2.9); LYMPHOCYTES % 14.2 % (15.0-51.0); MEAN CORPUSCULAR HEMOGLOBIN 31.5 pg (29.0-33.0); MEAN CORPUSCULAR HGB CONC 33.2 g/dl (32.0-37.0); MEAN CORPUSCULAR VOLUME 94.9 fl (82.0-101.0); MEAN PLATELET VOLUME 12.4 fl (7.4-10.4); MONOCYTE # 0.4 10^3/ul (0.3-0.9); NEUTROPHIL # 4.7 10^3/ul (1.6-7.5); NEUTROPHILS % 75.3 % (39.0-77.0); PLATELET COUNT 136 10^3/UL (140-415); RED CELL DISTRIBUTION WIDTH 11.7 % (11.5-14.5); WHITE BLOOD COUNT 6.3 10^3/ul (4.8-10.8)
[2016-07-22] MEDS: metroNIDAZOLE 500 MG TAB GTB SCH ×2 (05:34→13:52)
[2016-07-22] MEDS: PANTOPRAZOLE 40 MG INJ IV SCH (05:34)
[2016-07-22] MEDS: LEVOFLOXACIN 500 MG TAB GTB SCH (05:34)
[2016-07-22 05:43] LABS: MAGNESIUM 2.2 mg/dl (1.7-2.5); PHOSPHORUS 4.2 mg/dl (2.5-4.9)
[2016-07-22 08:03] LABS: POTASSIUM 4.4 mmol/L (3.5-5.1)
[2016-07-22 08:05] LABS: CREATININE 0.96 mg/dl (0.61-1.24)
[2016-07-22 08:06] LABS: CALCIUM 9.6 mg/dl (8.4-10.2)
[2016-07-22] MEDS: LEVETIRACETAM 500 MG TAB PEG SCH (08:38)
[2016-07-22] MEDS: LACTOBACILLUS CHEW TAB GTB SCH (08:38)
--- NOTE | 2016-07-22 08:49 | RADRPT ---
PROCEDURE: CT Brain without contrast. CLINICAL INDICATION: 76-year-old male with history of intracranial hemorrhage. Follow-up examina tion. TECHNIQUE: A CT of the brain was performed on a high-resolution [employer] CT [facility] utilizing a low dose technique with axial imaging from the skull base through the vertex withou t IV contrast. Multiplanar reformatted images were made. Images were reviewed on a PACS workstatio n. The CTDIvol is 38.8 mGy and the DLP is 713.5 mGycm. One or more of the following dose reduction techniques were used: - Automated exposure control. - Adjustment of the mA and/or kV according to patient size. Use of iterative reconstruction technique. COMPARISON: CT scan of the brain 07/20/2016 05:07 p.m. FINDINGS: The fourth ventricle is normal in size. The third and lateral ventricles are shifted to the left wi th 6.5 mm of subfalcine herniation. There is a parenchymal hematoma in the right parietal lobe manny uring up to 4.8 cm in height by 4.2 cm in width by 3.9 cm AP. There are smaller adjacent areas of p arenchymal and subarachnoid hemorrhage with surrounding vasogenic edema which are stable when compar ed to 07/20/2016. 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 Trace subarachnoid hemorrhage seen in the left parafalcine area adjacent to the left parietal lobe resolved. The visible portions of the paranasal sinuses are clear. The mastoid air cells and senior premium auditor y canals are normal. The skull is intact. The globes and extraocular muscles are normal through IMPRESSION: 1. There has been no significant interval change in the appearance of the brain and right parietal hematoma with surrounding vasogenic edema as compared to July 20, 2016 at 05:07 p.m. 2. Approximately 7 mm of subfalcine herniation of midline structures from right to left. 3. There are vascular calcifications in the cavernous and supracavernous portions of the internal ca rotid arteries. 4. Subarachnoid hemorrhage which is slightly improved. RPTAT:AAJJ Elijah Blanquita, Physician Date Time Electronically viewed and signed by Elijah Juares, Physician on 07/22/2016 08:49 JM/
[2016-07-22] MEDS: LEVALBUTEROL (NEB) 1.25 MG/0.5 ML AMP HHN SCH (09:02)
[2016-07-22] MEDS ORDERED: MUPIROCIN 2% 22 GM OINT TOP SCH (11:00)
--- NOTE | 2016-07-22 11:30 | PN ---
Date/Time of Note Date/Time of Note DATE: 07/22/16 TIME: 10:23 Assessment/Plan VTE Prophylaxis VTE Prophylaxis Intervention: SCD's Lines/Catheters IV Catheter Type (from [facility]): [place] Urinary Cath still in place: Yes Reason Cath still needed: other (indicate) Assessment/Plan Assessment/Plan 76-year-old gentleman: 1. 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 His neurological status appears to be back to baseline x [address] head stable this AM and per Neurosurgery note, OK to d/c back to [facility] today Appreciate Neurosurgery evaluation and recommendations and follow up Continue outpatient medications including Keppra for seizure prophylaxis. 2. Gastroesophageal reflux disease, stable. Continue Protonix. 3. Bronchitis/Aspiration PNA from his previous admission at [facility] 07/16, after reviewing records, to continue Levaquin and Flagyl x 7 more days ( x 14 days total). 4. Nutrition. The patient has a G-tube as he failed his swallow evaluation. Continue, tube feeding, on Isosource HN with the goal rate of 60 mL and 300 mL of free water flushes every 4 hours with further adjustments per SNF staff. 5. Right eye irritation: Cipro eye drops x 5 days 6. MRSA nares: Bactroban bid x 14 days Prophylaxis: SCDs for dvt ppx and PPI for GI ppx Disposition: D/c back to [facility] today, with follow up with Neurosurgery as outpatient. Significant other at bedside updated and all questions answered. Subjective 24 Hr Interval Summary Free Text/Dictation Patient's mental status back to baseline and CT head stable today No fevers and labs wnl Exam/Review of Systems Vital Signs Vitals Vital Signs Date Time Temp Pulse Resp B/P Pulse Ox O2 Delivery O2 Flow Rate FiO2 07/22/16 09:04 20 97 21 07/22/16 09:00 80 105/72 Room Air 07/22/16 08:00 98.0 Intake and Output 07/21/16 07/21/16 07/22/16 15:00 23:00 07:00 Intake Total 560 ml 880 ml 940 ml Output Total 880 ml 590 ml 470 ml Balance -320 ml 290 ml 470 ml Exam Constitutional: alert, oriented (x 2), other (left hemiparesis ) Eyes: other (right eye irritation much better today ) Respiratory: clear to auscultation, normal air movement Cardiovascular: regular rate and rhythm Gastrointestinal: non-tender, other (gTube in place and tolerating tube feeding ), soft Musculoskeletal: nl extremities to inspection, other (left hemiparesis chronic and dysarthria/dysphagia) Extremities: normal pulses, other (no edema, clubbign or cyanosis ) Neurological: focal weakness (left hemiparesis ), other (dyarthria/dysphagia ) Results Result Diagram: 07/22/16 0415 07/22/165 Results 24 hrs Laboratory Tests Test 07/22/16 04:15 Anion Gap 16 Basophils # 0.0 Basophils % 0.3 Blood Urea Nitrogen 31 H Calcium Level 9.6 Carbon Dioxide Level 27 Chloride Level 109 Creatinine 0.96 Eosinophils # 0.2 Eosinophils % 2.6 Glucose Level 137 Hematocrit 38.9 L Hemoglobin 12.9 L Lymphocytes # 0.9 Lymphocytes % 14.2 L Magnesium Level 2.2 Mean Corpuscular Hemoglobin 31.5 Mean Corpuscular Hemoglobin Concent 33.2 Mean Corpuscular Volume 94.9 Mean Platelet Volume 12.4 H Monocytes # 0.4 Monocytes % 7.0 Neutrophils # 4.7 Neutrophils % 75.3 Nucleated Red Blood Cells # 0.0 Nucleated Red Blood Cells % 0.0 Phosphorus Level 4.2 Platelet Count 136 L Potassium Level 4.4 Red Blood Count 4.10 L Red Cell Distribution Width 11.7 Sodium Level 148 H White Blood Count 6.3 # Medications Medications Current Medications Ondansetron HCl (Zofran Inj) 4 mg Q6H PRN IV NAUSEA AND/OR VOMITING; Start 07/20 at 21:30 Acetaminophen/ Hydrocodone Bitart ([place] (5/325)) 2 tab Q6H PRN PO PAIN LEVEL 7 -10; Start 07/20/16 at 21:30 Acetaminophen/ Hydrocodone Bitart ([place] (5/325)) 1 tab Q6H PRN PEG PAIN LEVEL 4-6; Start 07/21/16 at 03:30 Magnesium Hydroxide (Milk Of Mag) 30 ml DAILY PRN PEG CONSTIPATION; Start at 22:00 Docusate Sodium (Colace Liquid Cup) 100 mg BID PRN GTB CONSTIPATION; Start 07/20 at 22:00 Acetaminophen (Tylenol Liquid) 650 mg Q6H PRN PEG PAIN LEVEL 1-3 OR FEVER; Start 07/20/16 at 22:30 Levetiracetam (Keppra) 1,000 mg BID PEG Last administered on 07/22/16 08:38; Admin Dose 1,000 MG; Start 07/20/16 at 22:30 Levofloxacin (Levaquin) 500 mg DAILY@06 GTB Last administered on 07/22/16 05:34 ; Admin Dose 500 MG; Start 07/20/16 at 22:30 Metronidazole (Flagyl) 500 mg Q8 GTB Last administered on 07/22/16 05:34; Admin Dose 500 MG; Start 07/20/16 at 22:30 Senna/Docusate Sodium (Senokot-S) 1 tab HS PO Last administered on 07/21/16 20: 38; Admin Dose 1 TAB; Start 07/21/16 at 21:00 Lactobacillus Acidoph/Bulgaricus (Floranex) 1 tab DAILY GTB Last administered on 07/22/16 08:38; Admin Dose 1 TAB; Start 07/21/16 at 09:00 Pantoprazole (Protonix Iv) 40 mg DAILY@06 IV Last administered on 07/22/16 05: 34; Admin Dose 40 MG; Start 07/21/16 at 06:00 Ciprofloxacin HCl (Ciloxan 0.3% Oph) 2 drop Q4 RIGHT EYE Last administered on 08:38; Admin Dose 2 DROP; Start 07/21/16 at 17:00; Stop 07/26/16 at 13:01 RUBY SCOTT Jul 22, 2016 10:33
--- NOTE | 2016-07-22 11:31 | PDOCDIS ---
Discharge Instructions CONDITION Patient Condition: Stable HOME CARE INSTRUCTIONS: Special Diet: GTUBE FEEDING ACTIVITY: Activity Restrictions: Slowly Increase Activity FOLLOW UP/APPOINTMENTS Appointments Follow up with Neurosurgery from [facility] within 1 to 2 weeks Follow up with SNF staff Resume PT/OT/ST at SNF RUBY SCOTT Jul 22, 2016 11:31
[2016-07-22] MEDS ORDERED: SENNA/DOCUSATE NA (8.6MG/50MG) TAB PO SCH (21:00)
[2016-08-06] MEDS ORDERED: MUPIROCIN 2% 22 GM OINT TOP SCH (09:00)
== END 2016-07-22 15:25 | DRG 64 ==
LOC: E/R 16:18 → ICU 21:25
PROVIDERS: ADMIT Internal Medicine; ATTEND Internal Medicine
DX: I61.1 Nontraumatic intracerebral hemorrhage in hemisphere, cortical (principal); G93.6 Cerebral edema; J69.0 Pneumonitis due to inhalation of food and vomit; I69.154 Hemiplegia and hemiparesis following nontraumatic intracerebral hemorrhage affecting left non-dominant side; I10 Essential (primary) hypertension; K21.9 Gastro-esophageal reflux disease without esophagitis; J40 Bronchitis, not specified as acute or chronic; D69.6 Thrombocytopenia, unspecified; Z85.46 Personal history of malignant neoplasm of prostate; Z90.79 Acquired absence of other genital organ(s); Z93.1 Gastrostomy status; R47.81 Slurred speech; Z22.322 Carrier or suspected carrier of Methicillin resistant Staphylococcus aureus; H57.8 Other specified disorders of eye and adnexa
CPT/HCPCS: 70450; 71010; 80048; 80053; 81001; 81003; 83735; 84100; 84484; 85025; 85576; 85610; 85730; 86850; 86900; 86901; 87081; 92610; 93005; 94664; 97110; 97163; 97530; C9113; J2150